=== PATIENT | female | born 1955 | race Caucasian/White ===

== ENCOUNTER 2017-02-07 19:38 | Emergency (ER) | payer OTHER ==
[~2017-02-07] VITALS: Ht 160 cm; Wt 63.1 kg
[~2017-02-07 19:38] MED LIST: ABILIFY2 MG; ASPIRIN EC325 MG PO; DIAZEPAM5 MG PO; DOCUSATE SODIU100 MG PO; FLEXERIL10 MG PO; FLONASE ALLERG9.9 ML BOTH NARES; MOBIC7.5 MG PO; NAPROSYN500 MG PO; NORCO 5/3251 TABLET PO; NORTRIPTYLINE H25 MG; PERCOCET 5/31 TABLET PO; SENNA PLUS TAB1 EACH PO; TRAMADOL HCL50 MG PO; TRILEPTAL150 MG PO; TRILEPTAL300 MG; TRILEPTAL600 MG PO; VITAMIN D-32000 UNI2 PO; WELLBUTRIN XL150 MG; WELLBUTRIN XL300 MG PO
[2017-02-07 20:40] LABS: HEMATOCRIT 38.8 % (36.0-46.0); MCH 30.8 PG (29.0-34.0); MCV 90.4 FL (83-99); MEAN PLAT.VOLUME 9.2 uM^3 (9.5-12.4); PLATELET COUNT 192 K/uL (156-360); RBC DIS.WIDTH-CV 12.2 % (11.8-14.6); RBC DIS.WIDTH-SD 39.9 % (39-53); RED BLOOD COUNT 4.29 M/uL (3.80-5.20); WHITE BLOOD COUNT 6.3 K/uL (4.1-10.2)
[2017-02-07 20:48] LABS: D-DIMER ELISA < 150.00 ng/mLDDU (<230)
[2017-02-07 20:49] LABS: CHLORIDE 103 mEq/L (99-109); POTASSIUM 3.8 mEq/L (3.7-5.4); SODIUM 134 mEq/L (136-147)
[2017-02-07 20:50] LABS: GLUCOSE 104 mg/dL (70-99)
[2017-02-07 20:52] LABS: ANION GAP 9 MEQ/L (2-14)
[2017-02-07 20:54] LABS: GFR ESTIMATE (CALCULATED) > 59 mL/min/
[2017-02-07 20:55] LABS: UREA NITROGEN (BUN) 14 mg/dL (9-23)
[2017-02-07 21:01] LABS: TROP-I INTERPRETATION NEGATIVE; TROPONIN-I < 0.01 ng/mL (0.0-0.30)
[2017-02-07] MEDS ORDERED: AUGMENTIN875 MG PO (22:01)
[2017-02-07] MEDS ORDERED: PROAIR HFA8.5 GM IH (22:01)
[2017-02-07 22:26] VITALS: BP 156/83
== END 2017-02-07 22:26 | disposition home or self-care (01) ==
LOC: EME 19:38 → EXP 19:38
PROVIDERS: Physician Assistant
DX: J40 Bronchitis, not specified as acute or chronic (principal); J32.9 Chronic sinusitis, unspecified; I10 Essential (primary) hypertension; Z87.891 Personal history of nicotine dependence
CPT/HCPCS: 70450; 71020; 80048; 84484; 85027; 85379; 93005; 94640; 99281; 99284; J8540